=== PATIENT | female | born 1980 | race Caucasian/White ===

== ENCOUNTER 2017-01-23 05:55 | Observation (INO) | payer OTHER ==
[~2017-01-23] VITALS: Ht 172.7 cm; Wt 67.6 kg
[2017-01-23] MEDS ORDERED: SODIUM CHLORIDE 0.9% 1,000 ML IV SCH (06:16)
[2017-01-23] MEDS ORDERED: CIME300S4 PO (06:42)
[2017-01-23] MEDS ORDERED: ALPR-475 PO (06:43)
[2017-01-23 06:55] VITALS: BP 126/60
[2017-01-23] MEDS ORDERED: FENTANYL PF 250 MCG/5ML ONE (07:43)
[2017-01-23] MEDS ORDERED: MIDAZOLAM 1 MG/ML, 5ML ONE (07:44)
[2017-01-23] MEDS ORDERED: DEXAMETHASONE 4 MG/ML, 1ML ONE (08:03)
[2017-01-23] MEDS ORDERED: PROPOFOL 10 MG/ML, 20ML ONE (08:03)
[2017-01-23] MEDS ORDERED: ONDANSETRON 2MG/ML, 2ML ONE (08:03)
[2017-01-23] MEDS ORDERED: LIDOCAINE 2%, 20ML ONE (08:23)
[2017-01-23] MEDS ORDERED: HEPARIN 1,000 UNITS/ML, 10ML ONE (08:24)
[2017-01-23] MEDS ORDERED: ISOPROTERENOL 0.2MG/ML, 5ML ONE (08:44)
[2017-01-23] MEDS ORDERED: ONDANSETRON 2MG/ML, 2ML IVPush PRN (10:00)
[2017-01-23] MEDS ORDERED: hydrALAzine 20 MG/ML, 1ML IV PRN (10:00)
[2017-01-23] MEDS ORDERED: ZOLPIDEM 5MG TABLET PO PRN (10:00)
[2017-01-23] MEDS ORDERED: LABETALOL 5MG/ML, 20ML IV PRN (10:00)
[2017-01-23] MEDS ORDERED: PROMETHAZINE 25 MG/ML, 1ML IV PRN (10:00)
[2017-01-23] MEDS ORDERED: ALBUTEROL SULFATE 2.5 MG/3 ML NPPB PRN (10:00)
[2017-01-23] MEDS ORDERED: FENTANYL PF 100 MCG/2ML IV PRN (10:00)
[2017-01-23] MEDS ORDERED: HYDROmorphone 1 MG/ML, 1ML IV PRN (10:00)
[2017-01-23] MEDS ORDERED: OXYcodone 5 MG/5 ML ORAL.SOL UDC PO PRN (10:00)
[2017-01-23] MEDS ORDERED: ACETAMINOPHEN 325 MG TABLET PO PRN ×2 (10:00)
[2017-01-23] MEDS ORDERED: MEPERIDINE/PF 25MG/0.5ML IVPush PRN (10:00)
[2017-01-23] MEDS ORDERED: MIDAZOLAM 1 MG/ML, 2ML IV PRN (10:00)
[2017-01-23] MEDS ORDERED: ASPIRIN 325 MG TABLET EC PO ONE (10:30)
[2017-01-23 12:11] VITALS: BP 115/79
[2017-01-23 13:27] VITALS: BP 115/79
[2017-01-23 19:32] VITALS: BP 118/76
[2017-01-24 02:22] VITALS: BP 101/65
[2017-01-24 07:58] VITALS: BP 111/75
[2017-01-24] MEDS ORDERED: ASPI-650 PO (10:01)
== END 2017-01-24 10:43 | disposition home or self-care (01) ==
LOC: CACL 05:55 → ORIP 10:04 → 5SO 10:58
PROVIDERS: ADMIT Internal Medicine Cardiovascular Disease; ATTEND Internal Medicine Cardiovascular Disease
DX: I47.1 Supraventricular tachycardia (principal); I45.6 Pre-excitation syndrome
CPT/HCPCS: 36415; 71020; 84703; 93005; 93462; 93613; 93621; 93623; 93653; 93662; C1730; C1759; C1766; C1893; C1894; C2630; G0378; J1100; J1644; J2250; J2405; J2704; J3010; J3490; 85347